=== PATIENT | male | born 1940 | race Caucasian/White ===

== ENCOUNTER 2016-12-10 17:08 | Emergency (ER) | payer MEDICARE ==
[2016-12-10 17:28] VITALS: BP 127/69; PULSE 64; RESP 14; O2SAT 95
--- NOTE | 2016-12-10 17:51 | DRSVH ---
PROCEDURE: X-RAY CHEST ONE VIEW, PORTABLE ([id number]) INDICATIONS: fall TECHNIQUE: One view of the chest was acquired. COMPARISON: Merged With [facility], , CHEST 1VW (PORTABLE), 03/30/2014, 12:47. FINDINGS: Surgical changes and devices: None. Lungs and pleura: Lung volumes are low. There are mild basilar radiopacity. No pleural effusion or pn eumothorax. Mediastinum: Mediastinal contours appear normal. Heart size is normal. Bones and chest wall: No suspicious bony lesions. There questionable rib fractures along the left l ateral chest wall. Overlying soft tissues appear unremarkable. IMPRESSION: 1. Questionable lateral left rib fractures. If further characterization is warranted, dedicated rib v iews may be helpful. Dictated by: Francesca Aguirre M.D. on 12/10/2016 at 17:46 Approved by: Francesca Aguirre M.D. on 12/10/2016 at 17:49
--- NOTE | 2016-12-10 17:59 | DRSVH ---
PROCEDURE: CT BRAIN WITHOUT CONTRAST ([id number]) INDICATIONS: fall, head injury, etoh TECHNIQUE: Noncontrast 4.5 mm thick angled axial sections acquired from the foramen magnum to the vertex, with c oronal reformats. COMPARISON: None. FINDINGS: Image quality: Excellent. CSF spaces: Basal cisterns are patent. No extra-axial fluid collections. The ventricles are symmet yocasta in size and shape. Brain: No intracranial bleeds or masses. There is marked cerebral volume loss for age, with resulta nt ventricular and sulcal prominence. There are extensive periventricular and deep white matter social work lecturer mya small vessel ischemic changes. There is intracranial internal carotid artery atherosclerosis. Skull and face: Calvarium and visualized facial bones appear intact, without suspicious lesions. Sinuses: Visualized sinuses and mastoids are clear. IMPRESSION: 1. No acute intracranial findings. 2. Extensive findings likely associated with right breast ischemic changes. Dictated by: Francesca Aguirre M.D. on 12/10/2016 at 17:54 Approved by: Francesca Aguirre M.D. on 12/10/2016 at 17:57
--- NOTE | 2016-12-10 18:05 | ED.REPORT ---
HPI-Head Prob / Injury Date of Service December 10, 2016 ED Provider: Dr. Enrique Jin D.O. A 76 year old male not on anticoagulants presents to the ED via EMS accompanied by his with a head laceration after a ground fall while intoxicated on alcohol just prior to arrival. The patient reportedly drank 2/3 bottle of [place] today and may have taken Klonopin as well. EMS found the patient with a BP of 114/63, a pulse ox of 96%, and otherwise normal vital signs. He is a poor historian due to intoxication and history was obtained from his . Nursing Notes Stated Complaint: FALL W/ HEAD LACERATION Chief Complaint: Head, Face, Neck Trauma Nursing Notes Reviewed: Yes Allergies: Coded Allergies: No Known Allergies (Unverified Allergy, Unknown, 03/30/14) General Time Seen by Provider: 18:05 Chief Complaint Laceration Hx Obtained From: Spouse Unable to Obtain Hx: Patient condition, Intoxicated Arrived By: Ambulance Onset Occurred: Just prior to arrival Symptom Duration: Since onset Location: : Occipital region L: Occipital region R Quality: Painful Severity: Current: Moderate Severity: Maximum: Moderate Pertinent Negative: Relieved by nothing Immunizations: Unknown Recent Healthcare: No recent doctor visit Past Medical History Past Medical History None reported Past Surgical History None reported Social History Patient drinks heavily per his Other Social History: Ambulatory Status Independent Review of Systems Unable to Obtain ROS Patient condition, Intoxicated Physical Exam Physical Exam Notes: Initial Vital Signs Vital Signs (First) Date Time Temp Pulse Resp B/P Pulse Ox O2 Delivery O2 Flow Rate FiO2 12/10/16 17:28 36.8 64 14 127/69 95 Room Air 12/10/16 19:04 3 Initial VS: Reviewed Cardiovascular: Regular rate & rhythm, Heart sounds normal Skin: Warm, Dry, No cyanosis Psychiatric: Mood/affect normal, Behavior normal General/Constitutional: No acute distress Alertness: Positive: Somnolent (but arousable) Head / Eyes: Normocephalic Trauma - General: Positive: Laceration (Left scalp) Dried blood on left side of head ENT: Airway patent, Mucous membranes moist Neurologic: Oriented X3 Speech: Positive: Slow, Slurred Moves all four extremities equally Patient is slow to respond and ataxic Respiratory / Chest: Breath sounds NL, Breath sounds = bilat, No respiratory distress, No chest tenderness Interpretation & Diagnostics Lab Results Interpretation Result Diagram: 12/10/16 1754 12/10/16 1754 Test 12/10/16 17:54 12/10/16 18:11 12/10/16 18:12 12/10/16 20:15 White Blood Count 7.3th/mm3 (3.8-10.1) Red Blood Count 4.43mil/mm3 (4.40-5.80) Hemoglobin 12.9g/dL (13.8-17.2) Hematocrit 38.3% (41.0-50.0) Mean Corpuscular Volume 86.5fL (81-100) Mean Corpuscular Hemoglobin 29.1pg (27.0-35.0) Mean Corpuscular Hemoglobin Concent 33.7% (32.0-37.0) Red Cell Distribution Width 14.4% (12.3-15.4) Platelet Count 180bil/L (150-400) Neutrophils (%) (Auto) 76.3% (40-74) Lymphocytes (%) (Auto) 16.0% (14-46) Monocytes (%) (Auto) 5.7% (4-12) Eosinophils (%) (Auto) 1.5% (0-5) Basophils (%) (Auto) 0.4% (0-3) Sodium Level 138mEq/L (134-144) Potassium Level 3.5mEq/L (3.5-5.2) Chloride Level 101mEq/L (97-108) Carbon Dioxide Level 20mmol/L (18-29) Blood Urea Nitrogen 16mg/dL (8-27) Creatinine 0.72mg/dL (0.76-1.27) Estimat Glomerular Filtration Rate 113mL/min (>59) Glucose Level 97mg/dL (60-99) Calcium Level 8.3mg/dL (8.5-10.1) Total Bilirubin 0.3mg/dL (0.0-1.2) Aspartate Amino Transf (AST/SGOT) 17U/L (0-50) Alanine Aminotransferase (ALT/SGPT) 10U/L (0-44) Alkaline Phosphatase 143U/L (25-160) Troponin T < 0.010ug/L (0.0-0.011) Total Protein 6.4g/dL (6.4-8.4) Albumin 3.7g/dL (3.4-5.0) Hold [place] Top Tube Received (Received) Alcohols 250mg/dL (0-10) Hold Purple Top Tube Received (Received) Hold Blue Top Tube Received (Received) Hold Red Top Tube Received (Received) Hold [place] Top Tube Received (Received) Urine Opiates Screen Negative Urine Methadone Screen Negative Urine Barbiturates Screen Negative Urine Amphetamines Screen Negative Urine Benzodiazepines Screen Positive Urine Cocaine Metabolite Screen Negative Urine Cannabinoids Screen Negative X-Ray Chest Interpretation Chest Xray Interpretation: IMPRESSION: 1. Questionable lateral left rib fractures. If further characterization is warranted, dedicated rib views may be helpful. Dictated by: Francesca Aguirre M.D. on 12/10/2016 at 17:46 View: Portable, 1 view Interpretation / Wet Read by: Interpret - Radiologist CT Head Interpretation IMPRESSION: 1. No acute intracranial findings. 2. Extensive findings likely associated with right breast ischemic changes. Dictated by: Francesca Aguirre M.D. on 12/10/2016 at 17:54 Study: Head CT no contrast Interpretation / Wet Read by: Interpret - Radiologist CT C-Spine Interpretation IMPRESSION: 1. No acute cervical spine injury. 2. Moderate degenerative change. Dictated by: Francesca Aguirre M.D. on 12/10/2016 at 17:58 Study type: CT no contrast Interpretation / Wet Read by: Interpret - Radiologist Re-Eval/Medical Decision Re-Evaluation/Progress #1: Time of Eval: 20:45 Patient Status: Condition improved Re-Evaluation/Progress Note: Patient rechecked. He is still intoxicated. Patient's requests admission. Re-Evaluation/Progress #2: Time of Eval: 02:00 )( Re-Eval Neurologic Exam: Alert, Oriented X3, Gait normal Patient Status: Condition improved Re-Evaluation/Progress Note: Patient declined to have his wound repaired. He is awake, alert, and ambulating normally. He refuses to stay in the room and wait for his . Discussed with patient alcohol detox treatments. He declined. Discussed with patient CT, x-ray, and lab results, diagnosis, and plan for discharge. Follow-up and return to the ER instructions given. Patient agrees with plan for care and all questions were addressed. Consultation : Referral / Consult Name: Romeo Alonso MD Consulted With: Hospitalist Call Returned at: 21:06 Vegetable Handler: Agrees with eval, Agrees with plan Note: Discussed patient's case. Recommends discharge. Counseled Regarding: Diagnosis, Lab results, Need for follow-up, When/why to return to ED Discharge & Departure Primary Impression: Alcohol abuse Additional Impressions: Scalp laceration Encounter type: initial encounter Qualified Code: S01.01XA - Laceration without foreign body of scalp, initial encounter Fall from ground level Benzodiazepine abuse Disposition: Home All VS Reviewed: Yes Condition: Improved Patient Instructions: Abuse of Alcohol (GEN), Laceration (GEN) Additional Instructions: I strongly recommend that you abstain from consuming alcohol. Never mix alcohol and benzodiazepines as the combination can be fatal. Keep the wound clean and dry and covered with antibacterial ointment. Have a wound check in 48 hours. Call your doctor on Monday. I recommend that you attend Alcoholics Anonymous meetings and abstain from alcohol completely. Return if any problems or any new or worsening symptoms. Do not drive tonight. Referrals: OTHER,PHYSICIAN (PCP) Alcoholics Anonymous (AA) [facility] Scribe Attestation Portions of this note were transcribed by Fina Zhou. I, Dr. Jin, personally performed the history, physical exam, and medical decision-making; I reviewed and confirmed the accuracy of the information in the transcribed note. Signed by: Edgar Huber, 12/11/2016, 03:10 Enrique Jin DO December 10, 2016 18:05 FINA ZHOU December 10, 2016 18:58
--- NOTE | 2016-12-10 18:05 | DRSVH ---
PROCEDURE: CT CERVICAL SPINE WITHOUT CONTRAST ([id number]) INDICATIONS: fall, head injury, etoh TECHNIQUE: Noncontrast 3 mm thick sections acquired from the skull base to the T4 level. Sagittal and coronal r eformats were then constructed. For radiation dose reduction, the following was used: automated exp osure control, adjustment of mA and/or kV according to patient size. COMPARISON: None. FINDINGS: Image quality: Excellent. Bones: No fractures or dislocations. Moderate degenerative changes are present throughout the cervi cole spine including intervertebral disc space narrowing, endplate sclerosis, and osteophytosis. Visua lized superior ribs are intact. Soft tissues: Prevertebral soft tissues are normal in thickness. No paravertebral hematomas. No ap ical pneumothoraces. IMPRESSION: 1. No acute cervical spine injury. 2. Moderate degenerative change. Dictated by: Francesca Aguirre M.D. on 12/10/2016 at 17:58 Approved by: Francesca Aguirre M.D. on 12/10/2016 at 18:03
[2016-12-10 18:09] LABS: BASOPHILS % (AUTO) 0.4 % (0-3); EOSINOPHILS % (AUTO) 1.5 % (0-5); MONOCYTES % (AUTO) 5.7 % (4-12); Mean Corpuscular Hemoglobin 29.1 pg (27.0-35.0); Mean Corpuscular Volume 86.5 fL (81-100); NEUTROPHILS % (AUTO) 76.3 % (40-74); Platelet Count 180 bil/L (150-400)
[2016-12-10] MEDS ORDERED: Thiamine Inj 100 MG, Folic Acid Inj 1 MG, Magnesium Sulfate 50% Inj 2 GM, Multivitamins... IV ONE ×5 (18:30)
[2016-12-10 18:58] LABS: TROPONIN T < 0.010 ug/L (0.0-0.011)
[2016-12-10 19:04] VITALS: BP 99/46; PULSE 66; RESP 13; O2SAT 97
[2016-12-10 20:17] VITALS: BP 119/57; PULSE 62; RESP 19; O2SAT 92
[2016-12-10 22:04] VITALS: BP 114/85; PULSE 57; RESP 15; O2SAT 93
[2016-12-11 00:50] VITALS: BP 121/82; PULSE 55; RESP 15; O2SAT 96
[2016-12-11 01:44] VITALS: BP 120/77; PULSE 58; RESP 15; O2SAT 97
== END 2016-12-11 02:27 | disposition home or self-care (01) ==
LOC: SED 17:08 → EDBD 17:08 → SED 12-11 02:27
DX: F10.220 Alcohol dependence with intoxication, uncomplicated (principal); S01.01XA Laceration without foreign body of scalp, initial encounter; W18.30XA Fall on same level, unspecified, initial encounter; Y92.009 Unspecified place in unspecified non-institutional (private) residence as the place of occurrence of the external cause; Y93.89 Activity, other specified; Y99.8 Other external cause status; F13.10 Sedative, hypnotic or anxiolytic abuse, uncomplicated; Y90.8 Blood alcohol level of 240 mg/100 ml or more
CPT/HCPCS: 36415; 70450; 71010; 72125; 80053; 82075; 84484; 85025; 96374; 99285; G0480; J3475; J7030